=== PATIENT | female | born 1945 | race Caucasian/White ===

== ENCOUNTER 2020-09-08 10:32 | Outpatient (REF) | payer MEDICARE, SELFPAY ==
--- NOTE | 2020-09-08 10:49 | US_ITS ---
EXAMINATION: US RETROPERITONEAL LIMITED (RENAL ONLY) CLINICAL INFORMATION: Renal stone. COMPARISON: Previous exams most recent February 2020 TECHNIQUE: Grayscale and color imaging of the kidneys FINDINGS: RIGHT KIDNEY: 11.7 x 5.6 x 5.5 cm (SAG x AP x TRV). The kidney is normal in size, contour, and echogenicity. Renal cortical thickness is normal. There is moderate right hydronephrosis similar to previous exams. There are multiple right renal stones measuring 5 x 5 x 7 mm in the midpole, 5 x 5 x 7 mm in the lower pole and 12 x 7 x 12 mm in the lower pole. There is a stone or cluster of stones in the right renal pelvis/UPJ region that measures 10 x 9 x 8 mm. No renal mass. LEFT KIDNEY: 12.4 x 5.7 x 5.6 cm (SAG x AP x TRV). The kidney is normal in size, contour, and echogenicity. Renal cortical thickness is normal. No calculi or focal parenchymal lesions. No hydronephrosis. US/US renal BI IMPRESSION: Moderate right hydronephrosis and multiple right renal stones similar previous exams.
== END 2020-09-08 10:33 | disposition home or self-care (01) ==
LOC: HO.US 10:32
PROVIDERS: PCP Internal Medicine; Visit Provider Urology
DX: N20.0 Calculus of kidney (principal)
CPT/HCPCS: 76775

== ENCOUNTER → 2020-09-23 11:33 | Outpatient (BNVA) | payer MEDICARE, SELFPAY | PROVIDERS: PCP Internal Medicine; Referring Provider Internal Medicine; Visit Provider Urology | DX: Z76.89 Persons encountering health services in other specified circumstances (principal) | CPT/HCPCS: Q3014 ==

== ENCOUNTER 2020-10-15 09:29 | Outpatient (REF) | payer MEDICARE, SELFPAY ==
[2020-10-15 10:33] LABS: Cholesterol 122 mg/dL; HDL Cholesterol 45 mg/dL; LDL Cholesterol Calculated 60 mg/dl; Triglycerides 87 mg/dL
== END 2020-10-15 09:30 | disposition home or self-care (01) ==
LOC: HO.10HDL 09:29
PROVIDERS: PCP Internal Medicine; Visit Provider Internal Medicine
DX: I10 Essential (primary) hypertension (principal)
CPT/HCPCS: 80061

== ENCOUNTER 2020-12-04 11:17 | Outpatient (REF) | payer MEDICARE, SELFPAY ==
[2020-12-04 15:17] LABS: Erythrocyte Sedimentation Rate 17 MM/HR (0-20)
[2020-12-04 16:00] LABS: Folate > 20.0 ng/mL (> or = 4.0); Vitamin B12 1216 pg/mL (200-900)
== END 2020-12-04 11:18 | disposition home or self-care (01) ==
LOC: HO.10HDL 11:17
PROVIDERS: Visit Provider Internal Medicine
DX: G20 Parkinson's disease (principal)
CPT/HCPCS: 36415; 82607; 82746; 85652

== ENCOUNTER 2020-12-23 12:41 | Outpatient (REF) | payer MEDICARE, SELFPAY ==
--- NOTE | ~2020-12-23 | CT_ITS ---
EXAMINATION: CT HEAD WITHOUT CONTRAST CLINICAL INFORMATION: Parkinson's disease COMPARISON: None TECHNIQUE: Contiguous axial imaging was performed from the skull base to vertex without intravenous administration of contrast. This CT examination was performed using dose optimization techniques as appropriate, variously including the following: *Automated exposure control *Adjustment of mA and/or kV according to patient size (this includes techniques or standardized protocols for targeted exams where dose is matched to indication/reason for exam; i.e. extremities or head) *Use of iterative reconstruction technique DLP: 740 mGy-cm FINDINGS: There is no evidence of acute intracranial hemorrhage or territorial infarction. No abnormal mass effect or midline shift is seen. Garza to white matter differentiation is well preserved. No extra-axial fluid collections are identified. The ventricles are normal in size. There is no abnormal attenuation within the brain parenchyma. The osseous structures and soft tissues are normal. The mastoid air cells and visualized portions of the paranasal sinuses are well aerated. CT/CT head/brain wo con IMPRESSION: No acute intracranial pathology.
--- NOTE | ~2020-12-23 | CT_ITS ---
EXAMINATION: CT ABDOMEN AND PELVIS WITHOUT CONTRAST CLINICAL INFORMATION: Calculus of kidney COMPARISON: Ultrasound 09/08/2020 TECHNIQUE: Multidetector volumetric imaging was performed from the lung bases through the pubic symphysis. Sagittal and coronal reformatted images were obtained on the technologist workstation. This CT examination was performed using dose optimization techniques as appropriate, variously including the following: *Automated exposure control *Adjustment of mA and/or kV according to patient size (this includes techniques or standardized protocols for targeted exams where dose is matched to indication/reason for exam; i.e. extremities or head) *Use of iterative reconstruction technique FINDINGS: The lack of intravenous contrast limits evaluation of the solid visceral organs including the liver, spleen, pancreas, and kidneys. LUNG BASES: Status post right mastectomy. Lung bases are clear. Normal heart size. No pleural effusions or pneumothorax. LIVER, GALLBLADDER, AND BILIARY TREE: Limited non-contrast evaluation is normal. No gross focal hepatic lesion. Normal liver size and contour. No gross biliary ductal dilation. There is a tiny calcific density dependently in the fundus of the gallbladder likely a tiny gallstone. No biliary ductal dilatation. PANCREAS: Limited non-contrast evaluation is normal. No fifi-pancreatic fluid. SPLEEN: Limited non-contrast evaluation is normal. ADRENAL GLANDS: Normal; no adrenal mass. KIDNEYS AND URETERS: There is slight prominence of the left renal pelvis but no calculi or hydronephrosis seen. Again seen is moderate right hydronephrosis with significantly dilated right renal pelvis. The appearance is similar to the prior study 05/27/2017. Multiple dependent renal calculi are seen dependently in the right renal pelvis and dilated calyces, the largest in the right lower pole. There is a 1.0 cm calculus or collection of calculi in the right lower pole. Several tiny dependent calculi are seen in the right renal pelvis up to 1.5 cm transverse. Additional smaller calculi are present. There were numerous calculi on the remote prior study from 2017 but they vary in size and distribution between the current study in 2017. The right ureter is mildly dilated but there is no obstructing calculus seen. GASTROINTESTINAL TRACT: Stomach is distended with ingested material. Small bowel nondilated. Normal appendix. Scattered colonic diverticulosis. The left colon is collapsed. The sigmoid colon is collapsed. ABDOMINAL WALL: Tiny fat-containing umbilical hernia LYMPH NODES: No pathologically enlarged lymph nodes in the abdomen or pelvis. There are scattered calcifications in the central mesentery and right lower quadrant, likely calcified lymph nodes. These were present previously as well. VASCULAR: Normal caliber abdominal aorta. Mild calcified atherosclerotic changes. There are likely BLADDER: No bladder calculi. PELVIC VISCERA: Normal noncontrast CT appearance of the uterus and ovaries. OSSEOUS STRUCTURES: No acute or suspicious osseous abnormalities. CT/CT kidney stone IMPRESSION: Again seen is moderate right hydronephrosis with significantly dilated right renal pelvis. The overall appearance is similar to the prior study 05/27/2017. Multiple dependent renal calculi are seen, differing in size and distribution from the prior study in 2017 although there were calculi previously as well. There is a 1 cm calculus or collection of adjacent calculi in the right lower pole calyx. There are several tiny dependent calculi layering in the right renal pelvis up to 1.5 cm transverse. None of these appear to be in the right ureter itself however. No left-sided renal calculi.
== END 2020-12-23 12:42 | disposition home or self-care (01) ==
LOC: HO.CT 12:41
PROVIDERS: Visit Provider Urology
DX: N20.0 Calculus of kidney (principal); G20 Parkinson's disease
CPT/HCPCS: 70450; 74176

== ENCOUNTER → 2021-01-29 10:54 | Outpatient (BNVA) | payer MEDICARE, SELFPAY | PROVIDERS: PCP Internal Medicine; Visit Provider Urology | DX: N39.0 Urinary tract infection, site not specified (principal); N20.0 Calculus of kidney; N32.81 Overactive bladder | CPT/HCPCS: 81002; 99212 ==

== ENCOUNTER → 2021-03-03 10:34 | Outpatient (BNVA) | payer MEDICARE, SELFPAY | PROVIDERS: PCP Internal Medicine; Visit Provider Urology | DX: Z13.89 Encounter for screening for other disorder (principal) | CPT/HCPCS: Q3014 ==

== ENCOUNTER 2021-03-11 12:12 | Outpatient (REF) | payer MEDICARE, SELFPAY ==
[2021-03-11 13:27] LABS: Anion Gap 12 (12-20); Blood Urea Nitrogen 15 mg/dL (9-16); Calcium 10.5 mg/dL (8.4-10.2); Carbon Dioxide 32 mmol/L (22-29); Chloride 100 mmol/L (96-108); Estimated Glomerular Filt Rate > 60; Potassium 3.8 mmol/L (3.3-5.1); Sodium 140 mmol/L (135-145)
[2021-03-11 13:31] LABS: T4 Thyroxine 6.9 ug/dL (4.5-12.0); Thyroid Stimulating Hormone 1.57 uIU/mL (0.32-4.0)
[2021-03-11 13:54] LABS: Folate > 20.0 ng/mL (> or = 4.0); Vitamin B12 833 pg/mL (200-900)
== END 2021-03-11 12:13 | disposition home or self-care (01) ==
LOC: HO.10HDL 12:12
PROVIDERS: Absent Provider Psychiatry & Neurology Neurology; Visit Provider Psychiatry & Neurology Neurology
DX: G31.84 Mild cognitive impairment of uncertain or unknown etiology (principal)
CPT/HCPCS: 36415; 80051; 82310; 82565; 82607; 82746; 84436; 84443; 84520

== ENCOUNTER → 2021-03-24 14:36 | Outpatient (BNVA) | payer MEDICARE, SELFPAY | PROVIDERS: Visit Provider Urology | DX: N32.81 Overactive bladder (principal) | CPT/HCPCS: 64566 ==

== ENCOUNTER → 2021-03-31 14:41 | Outpatient (BNVA) | payer MEDICARE, SELFPAY | PROVIDERS: Visit Provider Urology ==

== ENCOUNTER → 2021-04-07 14:37 | Outpatient (BNVA) | payer MEDICARE, SELFPAY | PROVIDERS: Visit Provider Urology | DX: Z13.89 Encounter for screening for other disorder (principal) | CPT/HCPCS: 64566 ==

== ENCOUNTER → 2021-04-14 14:31 | Outpatient (BNVA) | payer MEDICARE, SELFPAY | PROVIDERS: Visit Provider Urology ==

== ENCOUNTER 2021-04-20 09:28 | Outpatient (REF) | payer MEDICARE, SELFPAY ==
[2021-04-20 10:29] LABS: Alanine Aminotransferase < 6 U/L (0-31); Albumin Level 4.6 g/dL (3.5-5.0); Alkaline Phosphatase 73 U/L (39-117); Anion Gap 16 (12-20); Aspartate Amino Transferase 22 U/L (5-31); Bilirubin Total 2.1 mg/dL (0.0-1.0); Blood Urea Nitrogen 20 mg/dL (9-16); Carbon Dioxide 27 mmol/L (22-29); Chloride 101 mmol/L (96-108); Cholesterol 139 mg/dL; Estimated Glomerular Filt Rate > 60; Glucose Fasting 109 mg/dL (60-99); HDL Cholesterol 53 mg/dL; LDL Cholesterol Calculated 71 mg/dl; Sodium 140 mmol/L (135-145); Total Protein 7.6 g/dL (6.5-8.0); Triglycerides 75 mg/dL
== END 2021-04-20 09:29 | disposition home or self-care (01) ==
LOC: HO.LAB 09:28
PROVIDERS: PCP Internal Medicine; Visit Provider Internal Medicine
DX: E11.9 Type 2 diabetes mellitus without complications (principal)
CPT/HCPCS: 36415; 80053; 80061

== ENCOUNTER → 2021-04-21 14:33 | Outpatient (BNVA) | payer MEDICARE, SELFPAY | PROVIDERS: Visit Provider Urology ==

== ENCOUNTER → 2021-04-28 14:38 | Outpatient (BNVA) | payer MEDICARE, SELFPAY | PROVIDERS: Visit Provider Urology | DX: Z13.89 Encounter for screening for other disorder (principal) | CPT/HCPCS: 99212 ==

== ENCOUNTER → 2021-05-05 14:33 | Outpatient (BNVA) | payer MEDICARE, SELFPAY | PROVIDERS: PCP Internal Medicine; Visit Provider Urology ==

== ENCOUNTER → 2021-05-12 14:36 | Outpatient (BNVA) | payer MEDICARE, SELFPAY | PROVIDERS: PCP Internal Medicine; Visit Provider Urology ==

== ENCOUNTER → 2021-05-26 14:34 | Outpatient (BNVA) | payer MEDICARE, SELFPAY | PROVIDERS: Visit Provider Urology ==

== ENCOUNTER → 2021-06-02 14:34 | Outpatient (BNVA) | payer MEDICARE, SELFPAY | PROVIDERS: Visit Provider Urology ==

== ENCOUNTER 2022-04-13 14:37 | Outpatient (REF) | payer MEDICARE, SELFPAY ==
--- NOTE | ~2022-04-13 | US_ITS ---
EXAMINATION: US RETROPERITONEAL LIMITED (RENAL ONLY) CLINICAL INFORMATION: Calculus of kidney. COMPARISON: CT stone study 01/20/2021. Renal ultrasound 09/08/2020 and 02/26/2020. KUB 10/12/2017 and 07/13/2017. TECHNIQUE: Real-time imaging of the kidneys. FINDINGS: RIGHT KIDNEY: 12.8 x 5.2 x 4.5 cm (SAG x AP x TRV). The kidney is normal in size, contour, and echogenicity. Renal cortical thickness is normal. There is right hydronephrosis. There is dilatation of the visualized right proximal ureter. There are multiple stones. Largest stone or cluster of stones measure 1.3 x 0.9 x 1.7 cm in the mid to lower pole and 1.4 x 0.9 x 1 cm in the lower pole. There is a stone in the right renal pelvis for proximal ureter that measures 1.9 x 0.6 x 2.3 cm. No focal parenchymal lesions. LEFT KIDNEY: 12.5 x 5.8 x 4.2 cm (SAG x AP x TRV). The kidney is normal in size, contour, and echogenicity. Renal cortical thickness is normal. No renal calculi or focal parenchymal lesions. There is mild fullness of the left renal collecting system. US/US renal BI IMPRESSION: Right hydronephrosis and ureteral dilatation. Multiple right large renal and renal pelvis or proximal ureteral stones. This does not appear appreciably changed from previous exams. Normal left kidney.
== END 2022-04-13 14:38 | disposition home or self-care (01) ==
LOC: HO.US 14:37
PROVIDERS: PCP Internal Medicine; Visit Provider Urology
DX: N20.0 Calculus of kidney (principal)
CPT/HCPCS: 76775

== ENCOUNTER 2022-04-15 09:57 | Outpatient (REF) | payer MEDICARE, SELFPAY ==
[2022-04-15 11:56] LABS: Cholesterol 113 mg/dL; HDL Cholesterol 43 mg/dL; LDL Cholesterol Calculated 57 mg/dl; Triglycerides 65 mg/dL
== END 2022-04-15 09:58 | disposition home or self-care (01) ==
LOC: HO.LAB 09:57
PROVIDERS: PCP Internal Medicine; Visit Provider Internal Medicine
DX: Z00.00 Encounter for general adult medical examination without abnormal findings (principal); E78.5 Hyperlipidemia, unspecified
CPT/HCPCS: 36415; 80061

== ENCOUNTER 2022-04-22 12:51 | Outpatient (REF) | payer MEDICARE, SELFPAY ==
--- NOTE | ~2022-04-22 | MR_ITS ---
EXAMINATION: MR BRAIN WITHOUT CONTRAST CLINICAL INFORMATION: Dysphagia. Rule out brain lesion. COMPARISON: Head CT dated 12/23/2020. TECHNIQUE: Multiplanar, multisequence imaging of the brain was performed without contrast. Slightly limited study with motion artifacts. FINDINGS: No diffusion abnormalities are identified to suggest an acute or subacute infarct. The ventricles are normal in size. No mass effect or midline shift is seen. Nonspecific mild scattered T2 hyperintense foci in the cerebral white matter and brainstem may be due to chronic microangiopathy. No extra-axial fluid collections are seen. The cerebellum is normal. The gradient refocused acquisition demonstrates no pathologic magnetic susceptibility artifact to indicate underlying acute or chronic blood products. The craniovertebral junction, marrow signal, and midline structures are normal. The major intracranial flow voids at the level of the [place] are preserved. The dural venous sinus flow voids are maintained. The mastoid air cells and paranasal sinuses are well aerated. MR/MR head/brain wo con IMPRESSION: Slightly limited examination with motion artifacts. No acute intracranial process. Mild chronic white matter microangiopathy.
== END 2022-04-22 12:52 | disposition home or self-care (01) ==
LOC: HO.MRI 12:51
PROVIDERS: Visit Provider Psychiatry & Neurology Neurology
DX: R13.10 Dysphagia, unspecified (principal)
CPT/HCPCS: 70551

== ENCOUNTER 2022-05-06 14:26 | Emergency (ER) | payer MEDICARE, SELFPAY | END 2022-05-06 15:48 | disposition left against medical advice (07) | PROVIDERS: Emergency Provider Emergency Medicine; PCP Internal Medicine | DX: L03.012 Cellulitis of left finger (principal) ==

== ENCOUNTER 2022-05-31 14:08 | Outpatient (REF) | payer MEDICARE, SELFPAY ==
--- NOTE | ~2022-05-31 | FL_ITS ---
EXAMINATION: XR BARIUM SWALLOW CLINICAL INFORMATION: Dysphagia. Parkinson's disease. COMPARISON: None TECHNIQUE: Routine modified barium swallow was performed in sitting upright view in presence of speech therapist. FINDINGS: Following oral administration of thin, thick barium, barium pudding, barium coated ground chicken and barium coated cookie there is slight premature spillage of food from the oral cavity into the pharynx but no laryngeal penetration or aspiration seen. On bolus reaching the oropharynx there is normal antegrade propagation of bolus into the pharynx and esophagus. No retention of food seen in the valleculae or piriform sinuses. FLUOROSCOPY TIME: 2.0 minutes. DOSE AREA PRODUCT: 1.986 uGy-m2 (microgray-meter squared) FL/FL barium swallow modified IMPRESSION: Mild premature spillage of food during the entire exam but no laryngeal penetration, aspiration or retention of food seen in the valleculae or piriform sinuses.
--- NOTE | 2022-05-31 17:00 | MHC.SL.IMP ---
Date of Plan of Treatment: 05/31/22 Onset of Symptoms/Illness: 12/01/20 Date Treatment Started: 05/31/22 Admitting Diagnosis: Parkinson's Disease Primary Speech & Language Diagnosis: R13.12 Oropharyngeal Phase Dysphagia Secondary Speech & Language Diagnosis: R13.14 Pharyngoesophageal Phase Dysphagia Reason for Today's Visit: 62401 Modified Barium Swallow Study Pre-evaluation Dietary Consistencies: Regular Pre-evaluation Liquid Consistency: Thin Pre-evaluation Medication Administration: Whole with Liquid Medical History: Modified Barium Swallow Study Fluoroscopic Evaluation of Swallowing Function CPT Code 34118 Evaluation Year: 2021 Reason for Study: Patient reports dysphagia. Referring Physician: Augusto Ribera MD Evaluating Clinician: Brielle Beckford MA, CCC-PRECISION INSTRUMENT MAKER Study Number: 1 Patient Name: Shyla Gold Status: Outpatient, Ambulatory Age: 76 Gender: Female MEDICAL HISTORY: Primary (admitting) Diagnosis: Parkinson Disease Year of Onset or Diagnosis: 2021 Comorbidities: Hyperlipidemia SURGICAL HX: H/O basal cell carcinoma excision H/O rectal polypectomy History of bilateral cataract extraction History of extraction of renal calculus History of hysteroscopy History of right mastectomy Current (pre-evaluation) Intake/Diet: Route: PO Diet Grade: Regular Pre-Study Functional Oral Intake Scale (FOIS): 7- Total oral intake with no restrictions Pain: None reported at time of study SUBJECTIVE: Pt is a 76 year old female with Parkinson?s disease referred for a modified barium swallow study by her primary care physician, Augusto Ribera MD. Pt reports onset of dysphagia around the same time that she had gotten diagnosed with Parkinson?s disease a year and a half ago. She reports that ?it takes a long time to chew food.? Pt denied coughing or choking during meals, with main complaints of difficulty chewing certain hard solids and fatigue during meals. Pt stated she believes her difficulty swallowing is likely attributed to her Parkinson?s Disease. Today pt also presented with mild to moderate dysphonia, with low volume and hoarse vocal quality. Pt stated that she too has noticed changes to her voice. Pt reports she believes she may have had a voice evaluation here at [facility]. However, upon chart review, this clinician was unable to find any record of previous speech evaluation here. -04/22/22 Brain MRI: ?Slightly limited examination with motion artifacts. No acute intracranial process. Mild chronic white matter microangiopathy.? Food and Liquid Trials: Oral Impairment: Lip Closure: Did not test Oral Impairment: Tongue Control During Bolus Hold: 2=Posterior escape of less than half of bolus Oral Impairment: Bolus Preparation/Mastication: 1=Slow prolonged chewing/mashing with complete re-collection Oral Impairment: Bolus Transport/Lingual Motion: 3=Repetitive/disorganized tongue motion Oral Impairment: Oral Residue: 1=Trace residue lining oral structures Oral Impairment:Initiation of Pharyngeal Swallow: 3=Bolus head in pyriforms Pharyngeal Impairment: Soft Palate Elevation: 0=No bolus between soft palate (SP)/pharyngeal wall (PW) Pharyngeal Impairment: Laryngeal Elevation: 0=Complete superior movement of thyroid cartilage (see description) Pharyngeal Impairment: Anterior Hyoid Excursion: 0=Complete anterior movement Pharyngeal Impairment: Epiglottic Movement: 0=Complete inversion Pharyngeal Impairment: Laryngeal Vestibular Closure:: 0=Complete: no air/contrast in laryngeal vestibule Pharyngeal Impairment: Pharyngeal Stripping Wave: 0=Present: complete Pharyngeal Impairment: Pharyngeal Contraction: Did not test Pharyngeal Impairment: Pharyngoesophageal Segment Openin=Partial distention/partial duration: partial obstruction of flow Pharyngeal Impairment: Tongue Base (TB) Retraction: 2=Narrow column of contrast/air between TB and posterior PW Pharyngeal Impairment: Pharyngeal Residue: 1=Trace residue within or on pharyngeal structures Pharyngeal Impairment: Esophageal Clearance Upright Position: 1=Esophageal retention Impressions and Recommendations Clinical Observations: OBJECTIVE: Time-out: performed at 02:45 Evaluation Start: 02:30; Stop: 02:40 Patient Positioning: Seated 70-90 degrees Viewing Planes: LATERAL ONLY Contrast: MBSImP? Standardized Protocol using commercially prepared, standardized Barium viscosities, including: Varibar? THIN LIQUID (40% w/v, <15 cps) , 1/2 Shortbread Cookie (1 x1 x.25 ) MBSImP ID: [id number] MBSImP Results: Lip closure for intraoral bolus containment could not be assessed due to logistical reasons not related to physiologic impairment. Tongue control during bolus hold resulted in posterior escape of less than half of the bolus. Bolus preparation and mastication resulted in slow, prolonged chewing/mashing but with complete re-collection. Bolus transport/lingual motion was with repetitive/disorganized motion of the tongue. Oral residue was a trace, lining oral structures. Initiation of the pharyngeal swallow occurred when the bolus head was in the pyriform sinuses. Soft palate elevation resulted in no bolus between the soft palate and the pharyngeal wall. Laryngeal elevation demonstrated complete superior movement of the thyroid cartilage with complete approximation of the arytenoids to the epiglottic petiole. Anterior hyoid excursion demonstrated complete anterior movement. Epiglottic movement resulted in complete inversion. Laryngeal vestibular closure was complete, as indicated by no air or contrast within the laryngeal vestibule at the height of the swallow. Pharyngeal stripping wave was present and complete. Pharyngeal contraction could not be determined due to logistical reasons not related to physiologic impairment. Pharyngoesophageal segment opening demonstrated partial distension/partial duration, with partial obstruction of bolus flow. Tongue base retraction allowed a narrow column of contrast or air between the retracted tongue base and the posterior pharyngeal wall. Pharyngeal residue was a trace within or on pharyngeal structures. Esophageal clearance in the upright position resulted in esophageal retention. Oral Impairment Score: 9 (absence of score, component 1) Pharyngeal Impairment Score: 3 (absence of score, component 13) Esophageal Impairment Score: 1 Laryngeal Penetration and Aspiration: Neither penetration nor aspiration was observed in today's study with Cookie, Thin. ASSESSMENT: Clinician Assessment: This exam was conducted by a multidisciplinary team, which included speech pathologist, radiologist, and appliance technician. Pt was seated upright at 90 degrees in a chair for lateral view only. Pt trialed the following liquid and solid consistencies: thin liquid barium by cup, pureed solid (mixture applesauce with barium paste), ground solid (mixture chicken salad with barium paste), regular solid (Rhiannon Doone cookie coated with barium paste), barium pill tablet washed with sips of thin liquid barium by cup. Pt presented with slow, prolonged oral phase dysphagia. Noted premature posterior escape of trace amount thin liquid, with spillage to the valleculae and pyriform sinuses prior to the initiation of the pharyngeal swallow trigger. Mastication was slow and prolonged, characterized by piece meal deglutition pattern. Pt chewed bolus, swallowed partial bolus, chewed remaining bolus, and then swallowed again to clear oral cavity. Posterior lingual movements for transport of bolus were repetitive and disorganized, resulting in spillage of bolus with both solids and liquids collecting in valleculae prior to the initiation of the pharyngeal swallow trigger. There was trace lingual residue which did subsequently clear with additional swallow. Pharyngeal swallow trigger was delayed, initiated as bolus head reached pyriform sinuses. There was no nasopharyngeal reflux. Complete laryngeal elevation with complete anterior hyoid excursion and complete epiglottic inversion. Laryngeal vestibular closure was complete. There was no evidence of aspiration or penetration with solids and liquids during this exam. Mildly reduced tongue base retraction. Trace residue on tongue base, on posterior pharyngeal wall, and in valleculae effectively cleared with subsequent swallow. There was partial distention/ partial duration; partial obstruction of flow through pharyngoesophageal segment opening. Noted esophageal retention as well. When pt swallowed barium pill tablet, pill passed through oropharynx, then got hung up in upper esophagus. Pt was cued by the clinician to take multiple sips of liquid barium to clear. Liquid Intake Recommendation: Thin Liquid Intake Strategies: Small Sips Dietary Recommendations: Regular Medication Administration: Whole with Liquid Please contact the pharmacy regarding appropriate crushable or liquid drug formulations that are available whenever modified delivery is recommended. Compensatory Strategies Recommended: Sitting Upright (90 deg) Double Swallow Small Bites and Sips Alternate Liquids/Solids Rate of Ingestion Change Avoid Specific Foods Supervision during eating and or drinking: None Needed Recommended Treatments: Compens. Strategy Educat. Recommendation for Speech Therapy: Outpatient Speech Therapy Text Comment: PLAN: Intake Recommendations: Route: PO Diet Grade: Regular Liquid Consistencies: Thin Post-Study Functional Oral Intake Scale (FOIS): 6- Total oral intake with no special preparation, but must avoid specific foods or liquid items Pt presents with mild oropharyngeal dysphagia, with notable impairments of the oral phase. Pt presents with slow and prolonged oral phase. Noted prolonged mastication, repetitive posterior lingual motion, with premature posterior escape of bolus. Trace oral and pharyngeal residue effectively cleared with subsequent swallow. Pharyngeal phase characterized by delayed swallow trigger, complete laryngeal elevation and complete laryngeal vestibular closure. There was no evidence of aspiration or penetration during this exam. Noted partial distention/partial duration/ partial obstruction of flow through pharyngoesophageal segment opening; esophageal retention. Recommend 1 f/u with speech pathologist to provide pt with further education regarding the observations made during this exam and recommended strategies: Recommend pt to resume unmodified diet REGULAR solids and THIN liquids, pills WHOLE with LIQUID. For ease of mastication, recommend pt to cut food into small bite size pieces and moisten with sauces and gravies. Recommend avoid tough and difficult to chew solids. Due to pt?s reports of fatigue when eating, pt may benefit from small, more frequent meals. Other precautions include: -upright 90 degree position when eating and drinking and for at least 30 minutes afterwards -take small bites of food, ensure oral cavity is clear before taking more bites -take small individual sips of liquid, avoid ?chugging? liquids -alternate bite of food with sips of liquid -double swallow as needed to clear residuals D/t the progressive nature of underlying Parkinson?s disease, recommend pt to continue monitoring her dysphagia. If there are any changes or worsening of symptoms, contact PCP, at which point a re-evaluation may be warranted. Pt may also benefit from a consult with a G.I. specialist if indicated given evidenced esophageal retention; pharyngoesophageal dysphagia. Pt may also benefit from a speech evaluation for dysphonia. Suggested Referrals: The patient might benefit from a referral to: Neurology, Gastroenterology, Speech Pathology Therapy Recommendations: Therapy will be initiated 1 follow-up visit Prognosis for Improvement: The prognosis for the patient to meet nutritional needs by mouth is excellent based on degree of impairment. Short Term Goals: ? Guidelines - The patient will comply with/recall the following guidelines/strategies 100% of the time with no cuing: Bolus Volume Change, Rate of Ingestion Change, Liquid Wash, Additional Swallow(s) per Bolus. ? Education - The patient will verbalize/demonstrate understanding of the results of this evaluation, the above recommendations, and the swallowing guidelines. Clinician - Supplemental, Miscellaneous Communication: It is important to note MBSS objective studies are snapshots in time and Patient function might vary with factors such as time of day or concomitant medical conditions. For this reason, the final treatment plan for this patient should rest with their medical care team. Additional recommendations should be considered with the totality of the Patient in mind. Thank for the opportunity to participate in the care of this patient. If you have any questions about the content of this report, please contact the [facility] at [facility]. Education: Education regarding findings from today's study and plans for therapy were provided to Patient only through Verbal Instruction. Understanding was expressed by the Patient only. Plate Worker Clinician/Clinical Fellow: No Supervisory Statement: N/A Speech Language Pathologist: Brielle Beckford M.A., CCC-PRECISION INSTRUMENT MAKER
== END 2022-05-31 14:09 | disposition home or self-care (01) ==
LOC: HO.XRAY 14:08
PROVIDERS: Visit Provider Internal Medicine
DX: R13.10 Dysphagia, unspecified (principal)
CPT/HCPCS: 74230; 92611

== ENCOUNTER 2022-06-01 11:19 | Outpatient (REF) | payer MEDICARE, SELFPAY ==
[2022-06-01 11:37] LABS: MANUAL DIFF FLAG NO
[2022-06-01 12:25] LABS: Basophils Absolute Auto 0.1 X10*3/uL (0.0-0.2); Basophils Percent Auto 0.8 % (0-2); Eosinophils Absolute Auto 0.2 X10*3/uL (0.0-0.4); Hematocrit 38.9 % (37.0-47.0); Hemoglobin 13.1 g/dl (12.0-16.0); Imm Gran Abs Auto 0.04 X10*3/uL (0.00-0.03); Imm Gran Pct Auto 0.5 % (0.0-0.4); Lymphocytes Percent Auto 23.4 % (20-40); Mean Corpuscular HGB Conc 33.7 g/dl (31.0-35.0); Mean Platelet Volume 9.1 fL (9.4-12.3); Monocytes Absolute Auto 1.2 X10*3/uL (0.1-1.2); Monocytes Percent Auto 13.9 % (2-11); Neutrophils Absolute Auto 5.2 x10*3/uL (2.0-8.3); Neutrophils Percent Auto 59.4 % (45-73); Platelet Count 263 X10*3/uL (160-400); Red Blood Count 4.23 X10*6/uL (4.20-5.50); Red Cell Distribution Width 12.8 % (11.0-16.0); White Blood Count 8.7 X10*3/uL (4.8-10.8)
[2022-06-01 12:44] LABS: Anion Gap 12 (12-20); Blood Urea Nitrogen 16 mg/dL (9-16); Carbon Dioxide 32 mmol/L (22-29); Chloride 96 mmol/L (96-108); Estimated Glomerular Filt Rate > 60; Glucose Random 117 mg/dL (60-115); Sodium 136 mmol/L (135-145)
[2022-06-01 12:58] LABS: T4 Thyroxine 7.2 ug/dL (4.5-12.0); Thyroid Stimulating Hormone 1.46 uIU/mL (0.32-4.0)
[2022-06-01 13:06] LABS: Erythrocyte Sedimentation Rate 21 MM/HR (0-20)
[2022-06-01 14:37] LABS: Folate 15.9 ng/mL (> or = 4.0); Vitamin B12 658 pg/mL (200-900)
== END 2022-06-01 11:20 | disposition home or self-care (01) ==
LOC: HO.LAB 11:19
PROVIDERS: PCP Internal Medicine; Visit Provider Psychiatry & Neurology Neurology
DX: Z13.0 Encounter for screening for diseases of the blood and blood-forming organs and certain disorders involving the immune mechanism (principal); G31.84 Mild cognitive impairment of uncertain or unknown etiology
CPT/HCPCS: 36415; 80048; 82607; 82746; 84436; 84443; 85025; 85652

== ENCOUNTER 2022-06-29 14:57 | Outpatient (RCR) | payer MEDICARE, SELFPAY | END 2022-11-03 11:00 | disposition home or self-care (01) | LOC: HO.SH 14:57 | PROVIDERS: Visit Provider Internal Medicine | DX: R13.10 Dysphagia, unspecified (principal) | CPT/HCPCS: 92526 ==

== ENCOUNTER 2022-10-04 13:06 | Outpatient (REF) | payer MEDICARE, SELFPAY ==
--- NOTE | ~2022-10-04 | US_ITS ---
EXAMINATION: US RETROPERITONEAL LIMITED (RENAL ONLY) CLINICAL INFORMATION: Calculus of kidney. COMPARISON: Renal ultrasound 04/13/2022 and 09/08/2020. X-ray KUB 10/12/2017 [address] 07/13/2017. CT abdomen 05/27/2017. TECHNIQUE: Real-time imaging of the kidneys. FINDINGS: RIGHT KIDNEY: 12.2 x 4.9 x 5.1 cm (SAG x AP x TRV). The kidney is normal in size, contour, and echogenicity. Renal cortical thickness is normal. No focal parenchymal lesions or hydronephrosis. There is a cluster of echogenic stones seen at the mid pole measuring 0.6 cm, lower pole 0.8 cm. There is [id number] hydronephrosis. Moderate prominence of the right proximal ureter is noted. LEFT KIDNEY: 12.1 x 5.4 x 4.4 cm (SAG x AP x TRV). The kidney is normal in size, contour, and echogenicity. Renal cortical thickness is normal. No calculi or focal parenchymal lesions. No hydronephrosis. The proximal ureter is dilated measuring 1.2 cm. US/US renal BI IMPRESSION: Nonobstructive echogenic calculi in the right kidney with mild hydronephrosis. Moderately dilated proximal ureters bilaterally.
== END 2022-10-04 13:07 | disposition home or self-care (01) ==
LOC: HO.US 13:06
DX: N20.0 Calculus of kidney (principal)
CPT/HCPCS: 76775